=== PATIENT | male | born 1935 | race Caucasian/White ===

== ENCOUNTER 2016-05-21 15:34 | Emergency (ER) | payer MEDICARE, OTHER ==
--- NOTE | ~2016-05-21 | ER ---
PATIENT'S NAME: DANIELLE CACERES [facility] AGE: 80 Y [address] ROOM: [place] [address] LOCATION: [facility] ADMIT DATE: 05/21/2016 ER/Outpatient Report DISCHARGE DATE: FAMILY PHYSICIAN: Tl Garza MD ATTENDING PHYSICIAN: Tl Handley Time of Arrival: 1536 hours. Time of Exam: 1536 hours. CHIEF COMPLAINT: Lip laceration. HISTORY OF PRESENT ILLNESS: The patient states just prior to arrival he was working with a platen grinder when it kicked back and hit him in the face. He received a laceration to the left upper lip area and the left lower jaw area. Denies any loss of consciousness. Does have skin tear to the right forearm area. Denies any change in his vision. He has not been dizzy or lightheaded. States that the platen grinder cord got caught in his arm, and when he was trying to untangle it, that is when the platen grinder kicked up and hit him in the face. ALLERGIES: NO KNOWN ALLERGIES. CURRENT MEDICATIONS: On his chart and reviewed by me. PAST MEDICAL HISTORY: Includes coronary artery disease, hyperlipidemia, and [place]. PAST SURGERIES: Include coronary artery bypass graft. SOCIAL HISTORY: He quit smoking in 17 years ago. Denies use of alcohol or drugs. He is unsure of his last tetanus shot. REVIEW OF SYSTEMS: All negative other than those mentioned in the HPI. PHYSICAL EXAMINATION: VITAL SIGNS: Blood pressure is 140/80, pulse of 137, respirations 20, and O2 saturation was 94% on room air. GENERAL: He is awake, alert, and oriented x4. SKIN: [place], warm, and dry. PATIENT'S NAME: DANIELLE CACERES [facility] AGE: 80 Y [address] ROOM: [place] [address] LOCATION: [facility] ADMIT DATE: 05/21/2016 ER/Outpatient Report DISCHARGE DATE: FAMILY PHYSICIAN: Tl Garza MD ATTENDING PHYSICIAN: Tl Handley LUNGS: Respirations are even and nonlabored. Lung sounds are clear throughout. HEENT: Pupils are equal and reactive to light. Extraocular movements are intact. He does have sensation to his face. He is able to make a rough smile. Denies any pain with his teeth. He states his teeth are false, however. He has a 2.5 cm laceration through and through his left upper lip and a 4-cm laceration to the left lower jaw area. HEART: Regular rate and rhythm. ABDOMEN: Soft, nondistended. Bowel sounds are present. EXTREMETIES: Patient has two skin tears to right forearm measuring 1cm. EMERGENCY DEPARTMENT COURSE: Facial lacerations were anesthetized with 1% plain Xylocaine. Both lacerations were irrigated with saline. The lip laceration was closed with 5-0 chromic and 6-0 Prolene, the patient tolerated that well. The left lower jaw area was closed with 5-0 chromic and 6-0 Prolene, the patient tolerated it well. The skin tears on right forearm were cleansed with saline and steri-strips applied. The patient was given a Tdap to update his tetanus. Report was given to JASPREET Cai, who will resume the patient's care. The patient is to have a CT and then will determine further care from there. The patient is aware of plan. MESERET PRITCHARD APRN FOR DO ALPESH MCDONALD/rowan /[id number] d: 05/21/161935 t: 05/23/16 0755, OUTPATIENT REPORT
--- NOTE | ~2016-05-21 | ER ---
PATIENT'S NAME: DANIELLE CACERES [facility] AGE: 80 Y [address] ROOM: [place] [address] LOCATION: [facility] ADMIT DATE: 05/21/2016 ER/Outpatient Report DISCHARGE DATE: 05/21/2016 FAMILY PHYSICIAN: Tl Garza MD ATTENDING PHYSICIAN: Tl Handley ADDENDUM: I assumed the patient's care from Becky Fernandez, please see her dictation as well. I was awaiting the patient's CT report to follow up with the patient. It does show that he has small, radiopaque densities within the soft tissues along the anterior aspect of the left maxillary sinus. I did discuss this with Dr. Handley. The patient's facial lacerations were closed prior to this finding. Dr. Handley and I discussed this with the patient, whether or not he would like us to open his laceration up and continue to irrigate the pieces out, or if he would like to continue to monitor and be placed on antibiotics. The patient wishes to not have his lips opened back up. He would like to just be placed on antibiotics. He felt like that would be the best decision for him. We will dismiss the patient to home with a prescription for Keflex, to use as directed, as well as some Tyrone, to use as needed for any pain. He needs to place ice if needed, and I would like him to follow up with his personal physician in the next 5 days or sooner if his symptoms worsen. The patient understands and agrees with care. PHIL RODRIGUEZ PA-C FOR DO SIERRA MCDONALD/rowan /[id number] d: t: 05/24/16 1154, OUTPATIENT REPORT
--- NOTE | ~2016-05-21 | ER ---
PATIENT'S NAME: DANIELLE CACERES [facility] AGE: 80 Y [address] ROOM: [place] [address] LOCATION: [facility] ADMIT DATE: 05/21/2016 ER/Outpatient Report DISCHARGE DATE: 05/21/2016 FAMILY PHYSICIAN: Tl Garza MD ATTENDING PHYSICIAN: Tl Handley ADDENDUM: This is an addendum to Becky Fernandez's. Please see her dictation for chief complaint, history of present illness, past medical history, past surgical history, social history, allergies, medications, review of systems, physical exam. I did see and evaluate the patient upon arrival here in the emergency department. The wounds are evaluated by myself. He does have a laceration [id number] his left upper lip as well as left side of his face. He does report this is from a lens edge grinder machine. The area was repaired by Becky Fernandez. We saw the patient with need a facial CT to evaluate the bone as well upon further evaluation. CT scan did show radiopaque foreign body just above the maxillary sinus. The area of upper lip was evaluated. The wound had been closed prior to this knowledge. I did discuss with the patient to get this radiopaque foreign body out. We will have to attempt to take out the sutures and wash this out. I have recommended this. The patient does not want to do this at this time. He wants to go home. I have discussed the risk of leaving a foreign body in there including infection, which could get worse and require surgery. There is obviously worsening conditions from infection including severe disability and . The patient does continue to wish to go home. His is in the room as well as a friend. I have discussed we will place him on Keflex. I have stressed the importance of return to care instructions including fevers, chills, purulent drainage, swelling, pain, or any other concerns to return to the emergency department as soon as possible. The patient is agreeable. He is without further questions at this time. DISPOSITION: The patient is discharged to home in good condition. DO SOFY MCDONALD/rowan /[id number] d: 05/22/16 1247 t: 05/23/16902, OUTPATIENT REPORT
== END 2016-05-21 18:07 | disposition disaster alternative care site (69) ==
LOC: GACC 15:34
PROC: 0HQ1XZZ Repair Face Skin, External Approach (ICD-10-PCS; principal; 2016-05-21)
DX: S01.521A Laceration with foreign body of lip, initial encounter (principal); S01.81XA Laceration without foreign body of other part of head, initial encounter; S51.811A Laceration without foreign body of right forearm, initial encounter; Z23 Encounter for immunization; W31.89XA Contact with other specified machinery, initial encounter; Y92.69 Other specified industrial and construction area as the place of occurrence of the external cause; Y99.0 Civilian activity done for income or pay